=== PATIENT | male | born 1955 | race African-American/Black ===

== ENCOUNTER 2020-08-25 08:20 | Observation (INO) | payer MEDICARE ==
[2020-08-25] MEDS ORDERED: Lisinopril 20 MG TAB PO SCH ×2 (09:00→13:45)
[2020-08-25 09:17] LABS: #Basophils 0.1 10x3/uL (0.0-0.2); #Eosinphils 0.2 10x3/uL (0.0-0.5); #Monocytes 0.4 10x3/uL (0.0-1.1); #Neutrophils 4.3 10x3/uL (1.5-8.4); %Basophils 0.8 % (0.0-2.0); %Eosinophils 2.4 % (0.0-6.0); %Lymphocytes 22.9 % (18.0-47.0); %Monocytes 6.1 % (0.0-10.0); %Neutrophils 67.5 % (40.0-75.0); Hemoglobin 16.1 g/dL (13.5-17.5); Mean Corpuscular HGB CONC 33.3 g/dL (32.0-36.0); Mean Corpuscular Hemoglobin 29.8 pg (27.0-33.0); Mean Corpuscular Volume 89.5 fl (81.2-95.1); Mean Platelet Volume 12.5 fl (7.4-10.4); Platelet Count 156 10x3/uL (150-450); RBC Distribution Width 12.3 % (11.5-14.5); Red Blood Cell (RBC) Count 5.41 10x6/uL (4.32-5.72); White Blood Cell (WBC) Count 6.4 10x3/uL (3.5-10.5)
[2020-08-25 09:26] LABS: ALT (SGPT) 25 U/L (8-55); AST (SGOT) 26 U/L (5-34); Alkaline Phosphatase 85 U/L (40-110); Anion Gap 13 mmol/L (10-20); BUN (Urea Nitrogen) 19 mg/dL (8.4-25.7); Bilirubin, Total 0.5 mg/dL (0.2-1.2); Calc. Creatinine Clearance 0 mL/min (70-130); Calcium 9.5 mg/dL (7.8-10.44); Carbon Dioxide 29 mmol/L (23-31); Chloride 100 mmol/L (98-107); Globulin 3.7 g/dL (2.4-3.5); Glucose 166 mg/dL (80-115); Potassium 3.2 mmol/L (3.5-5.1); Protein, Total 7.7 g/dL (5.8-8.1); Sodium 139 mmol/L (136-145)
[2020-08-25 09:43] LABS: CKMB 3.6 ng/mL (0-6.6)
[2020-08-25] MEDS ORDERED: Nitroglycerin 2% Ointment 1 INCH/1 GM Packet ONE (09:54)
[2020-08-25] MEDS ORDERED: Furosemide 40 MG/4 ML VIAL ONE (11:09)
[2020-08-25] MEDS ORDERED: Ondansetron PF 4 MG/2 ML Vial IVP PRN (11:44)
[2020-08-25 13:33] VITALS: BMI 32.5
[2020-08-25] MEDS ORDERED: Carvedilol 25 MG TAB PO SCH ×2 (13:45→17:00)
[2020-08-25] MEDS: Carvedilol 25 MG TAB PO SCH ×2 (13:54→20:03)
[2020-08-25] MEDS ORDERED: Insulin Regular 300 UNITS/3 ML VIAL SC PRN (14:00)
[2020-08-25] MEDS ORDERED: Dextrose 5% in Water 1,000 ML IV PRN (14:00)
[2020-08-25] MEDS ORDERED: Dextrose 50% Abboject 50 ML SYRINGE IVP PRN (14:00)
[2020-08-25 15:14] LABS: CKMB 3.1 ng/mL (0-6.6)
[2020-08-25] MEDS ORDERED: Potassium Chloride 20 MEQ TAB PO SCH (15:30)
[2020-08-25] MEDS: Potassium Chloride 20 MEQ TAB PO SCH (17:46)
[2020-08-25] MEDS: hydrALAZINE 20 MG/ML VIAL SLOW IVP PRN (20:02)
[2020-08-25] MEDS: Apixaban 5 MG TAB PO SCH (20:03)
[2020-08-25 20:33] LABS: Hemoglobin A1c 6.5 % (4.0-6.0)
[2020-08-25] MEDS ORDERED: Famotidine 20 MG TAB PO SCH (21:00)
[2020-08-25] MEDS: Lorazepam 2 MG/ML VIAL SLOW IVP PRN (21:41)
[2020-08-26 05:33] LABS: #Basophils 0.1 10x3/uL (0.0-0.2); #Eosinphils 0.1 10x3/uL (0.0-0.5); #Monocytes 0.5 10x3/uL (0.0-1.1); #Neutrophils 5.5 10x3/uL (1.5-8.4); %Basophils 0.6 % (0.0-2.0); %Eosinophils 1.4 % (0.0-6.0); %Lymphocytes 24.4 % (18.0-47.0); %Monocytes 6.2 % (0.0-10.0); %Neutrophils 67.2 % (40.0-75.0); Hemoglobin 16.9 g/dL (13.5-17.5); Mean Corpuscular HGB CONC 33.7 g/dL (32.0-36.0); Mean Corpuscular Hemoglobin 29.9 pg (27.0-33.0); Mean Corpuscular Volume 88.8 fl (81.2-95.1); Mean Platelet Volume 12.5 fl (7.4-10.4); Platelet Count 171 10x3/uL (150-450); RBC Distribution Width 12.4 % (11.5-14.5); Red Blood Cell (RBC) Count 5.65 10x6/uL (4.32-5.72); White Blood Cell (WBC) Count 8.1 10x3/uL (3.5-10.5)
[2020-08-26 05:47] LABS: ALT (SGPT) 20 U/L (8-55); AST (SGOT) 19 U/L (5-34); Albumin 3.8 g/dL (3.4-4.8); Alkaline Phosphatase 79 U/L (40-110); Anion Gap 10 mmol/L (10-20); BUN (Urea Nitrogen) 17 mg/dL (8.4-25.7); Bilirubin, Total 0.5 mg/dL (0.2-1.2); Calc. Creatinine Clearance 70 mL/min (70-130); Calcium 9.5 mg/dL (7.8-10.44); Carbon Dioxide 30 mmol/L (23-31); Chloride 104 mmol/L (98-107); Globulin 3.7 g/dL (2.4-3.5); Glucose 119 mg/dL (80-115); Potassium 3.3 mmol/L (3.5-5.1); Protein, Total 7.5 g/dL (5.8-8.1); Sodium 141 mmol/L (136-145)
[2020-08-26] MEDS: Acetaminophen 325 MG TAB PO PRN ×3 (06:03→21:23)
[2020-08-26] MEDS: Potassium Chloride 20 MEQ TAB PO SCH ×2 (08:34→17:22)
[2020-08-26] MEDS: Lorazepam 2 MG/ML VIAL SLOW IVP PRN (08:35)
[2020-08-26] MEDS: Lisinopril 20 MG TAB PO SCH (08:35)
[2020-08-26] MEDS: Apixaban 5 MG TAB PO SCH ×2 (08:35→20:30)
[2020-08-26] MEDS: Carvedilol 25 MG TAB PO SCH ×2 (08:35→17:22)
[2020-08-26] MEDS: hydrALAZINE 20 MG/ML VIAL SLOW IVP PRN ×2 (10:56→15:35)
[2020-08-26] MEDS ORDERED: hydrALAZINE 25 MG TAB PO SCH (15:00)
[2020-08-26] MEDS: hydrALAZINE 25 MG TAB PO SCH ×2 (15:32→20:31)
[2020-08-26] MEDS ORDERED: Famotidine 20 MG TAB PO SCH (21:00)
[2020-08-26] MEDS ORDERED: Apixaban 5 MG TAB PO SCH (21:00)
[2020-08-27] MEDS: Apixaban 5 MG TAB PO SCH (08:58)
[2020-08-27] MEDS: Lisinopril 20 MG TAB PO SCH (08:58)
[2020-08-27] MEDS: Carvedilol 25 MG TAB PO SCH (08:59)
[2020-08-27] MEDS: Potassium Chloride 20 MEQ TAB PO SCH (08:59)
[2020-08-27] MEDS: hydrALAZINE 25 MG TAB PO SCH ×2 (08:59→14:52)
[2020-08-27] MEDS ORDERED: Aspirin Chewable 81 MG TAB PO SCH (09:00)
[2020-08-27] MEDS ORDERED: Rosuvastatin 10 MG TAB PO SCH (09:00)
[2020-08-27] MEDS ORDERED: Chlorthalidone 25 MG TAB PO SCH (12:00)
[2020-08-27 12:30] VITALS: BP 170/105; TEMP 98.6
[2020-08-27 12:39] LABS: ALT (SGPT) 18 U/L (8-55); AST (SGOT) 21 U/L (5-34); Albumin 4.1 g/dL (3.4-4.8); Alkaline Phosphatase 80 U/L (40-110); Anion Gap 11 mmol/L (10-20); BUN (Urea Nitrogen) 14 mg/dL (8.4-25.7); Bilirubin, Total 0.6 mg/dL (0.2-1.2); Calc. Creatinine Clearance 68 mL/min (70-130); Calcium 10.1 mg/dL (7.8-10.44); Carbon Dioxide 28 mmol/L (23-31); Chloride 102 mmol/L (98-107); Globulin 3.8 g/dL (2.4-3.5); Glucose 131 mg/dL (80-115); Potassium 3.2 mmol/L (3.5-5.1); Protein, Total 7.9 g/dL (5.8-8.1); Sodium 138 mmol/L (136-145)
[2020-08-27] MEDS ORDERED: Magnesium Oxide 400 MG TAB PO SCH (21:00)
[2020-08-28] MEDS ORDERED: Chlorthalidone 25 MG TAB PO SCH (09:00)
== END 2020-08-27 15:26 | disposition home or self-care (01) ==
LOC: CSHERS 08:20 → INTOOBSV 11:30 → CSHTELE 11:30
PROVIDERS: ADMIT Family Medicine; ATTEND Family Medicine
DX: I16.0 Hypertensive urgency (principal); I48.19 Other persistent atrial fibrillation; I25.10 Atherosclerotic heart disease of native coronary artery without angina pectoris; R77.8 Other specified abnormalities of plasma proteins; E11.22 Type 2 diabetes mellitus with diabetic chronic kidney disease; I13.10 Hypertensive heart and chronic kidney disease without heart failure, with stage 1 through stage 4 chronic kidney disease, or unspecified chronic kidney disease; N18.9 Chronic kidney disease, unspecified; N17.9 Acute kidney failure, unspecified; E87.6 Hypokalemia; E78.5 Hyperlipidemia, unspecified; I25.2 Old myocardial infarction; Z95.5 Presence of coronary angioplasty implant and graft; Z79.899 Other long term (current) drug therapy; Z79.82 Long term (current) use of aspirin; Z79.01 Long term (current) use of anticoagulants; Z79.84 Long term (current) use of oral hypoglycemic drugs
CPT/HCPCS: 36415; 36416; 71045; 80053; 82553; 83036; 83735; 83880; 84484; 85025; 93005; 93306; 96374; 96375; G0378; J0360; J1940; J2060

== ENCOUNTER 2021-06-05 11:08 | Emergency (ER) | payer MEDICARE, BC ==
[2021-06-05] MEDS ORDERED: HYDROcodone/Acetaminophen 10/325 mg Tablet ONE (13:32)
[2021-06-05] MEDS ORDERED: predniSONE 20 MG TAB ONE (13:32)
== END 2021-06-05 14:27 | disposition home or self-care (01) ==
LOC: CSHERS 11:08
DX: M10.9 Gout, unspecified (principal); I10 Essential (primary) hypertension; E78.5 Hyperlipidemia, unspecified; I25.2 Old myocardial infarction; I48.91 Unspecified atrial fibrillation; E11.9 Type 2 diabetes mellitus without complications; Z79.899 Other long term (current) drug therapy; Z79.82 Long term (current) use of aspirin
CPT/HCPCS: J7512

== ENCOUNTER 2021-06-12 08:24 | Emergency (ER) | payer MEDICARE, BC ==
[2021-06-12] MEDS ORDERED: Morphine 4 MG/ML VIAL ONE (11:41)
== END 2021-06-12 12:33 | disposition home or self-care (01) ==
LOC: CSHERS 08:24
DX: M10.9 Gout, unspecified (principal); I10 Essential (primary) hypertension; E78.5 Hyperlipidemia, unspecified; E11.9 Type 2 diabetes mellitus without complications; I48.91 Unspecified atrial fibrillation; Z79.82 Long term (current) use of aspirin; Z79.899 Other long term (current) drug therapy
CPT/HCPCS: 96372; 99283; J2270

== ENCOUNTER 2021-10-05 10:06 | Emergency (ER) | payer OTHER, MEDICARE ==
[2021-10-05 11:04] LABS: #Basophils 0.1 10x3/uL (0.0-0.2); #Eosinphils 0.2 10x3/uL (0.0-0.5); #Monocytes 0.5 10x3/uL (0.0-1.1); #Neutrophils 6.5 10x3/uL (1.5-8.4); %Basophils 0.6 % (0.0-2.0); %Eosinophils 2.1 % (0.0-6.0); %Lymphocytes 15.1 % (18.0-47.0); %Monocytes 5.9 % (0.0-10.0); %Neutrophils 75.8 % (40.0-75.0); Hemoglobin 14.8 g/dL (13.5-17.5); Mean Corpuscular HGB CONC 33.5 g/dL (32.0-36.0); Mean Corpuscular Hemoglobin 29.8 pg (27.0-33.0); Mean Corpuscular Volume 88.9 fl (81.2-95.1); Mean Platelet Volume 12.4 fl (7.4-10.4); Platelet Count 237 10x3/uL (150-450); RBC Distribution Width 13.2 % (11.5-14.5); Red Blood Cell (RBC) Count 4.97 10x6/uL (4.32-5.72); White Blood Cell (WBC) Count 8.6 10x3/uL (3.5-10.5)
[2021-10-05] MEDS ORDERED: HYDROcodone/Acetaminophen 10/325 mg Tablet ONE (11:37)
[2021-10-05 11:42] LABS: ALT (SGPT) 16 U/L (8-55); AST (SGOT) 15 U/L (5-34); Albumin 3.9 g/dL (3.4-4.8); Alkaline Phosphatase 114 U/L (40-110); Anion Gap 18 mmol/L (10-20); BUN (Urea Nitrogen) 12 mg/dL (8.4-25.7); Bilirubin, Total 0.6 mg/dL (0.2-1.2); Calc. Creatinine Clearance 0 mL/min (70-130); Calcium 9.9 mg/dL (7.8-10.44); Carbon Dioxide 23 mmol/L (23-31); Chloride 101 mmol/L (98-107); Globulin 2.9 g/dL (2.4-3.5); Glucose 238 mg/dL (80-115); Potassium 3.5 mmol/L (3.5-5.1); Protein, Total 6.8 g/dL (5.8-8.1); Sodium 138 mmol/L (136-145)
== END 2021-10-05 11:30 | disposition home or self-care (01) ==
LOC: CSHERS 10:06
DX: S93.402A Sprain of unspecified ligament of left ankle, initial encounter (principal); L03.116 Cellulitis of left lower limb; I10 Essential (primary) hypertension; I25.2 Old myocardial infarction; I48.91 Unspecified atrial fibrillation; E78.5 Hyperlipidemia, unspecified; M10.9 Gout, unspecified; Z79.01 Long term (current) use of anticoagulants; Z79.84 Long term (current) use of oral hypoglycemic drugs; Z79.899 Other long term (current) drug therapy; X50.1XXA Overexertion from prolonged static or awkward postures, initial encounter; Y93.01 Activity, walking, marching and hiking; Y92.480 Sidewalk as the place of occurrence of the external cause
CPT/HCPCS: 80053; 83605; 85025; 96365; J3490

== ENCOUNTER 2021-10-06 08:54 | Emergency (ER) | payer MEDICARE ==
[2021-10-06] MEDS ORDERED: Morphine 4 MG/ML VIAL ONE (10:23)
== END 2021-10-06 10:55 | disposition home or self-care (01) ==
LOC: CSHERS 08:54
DX: L03.116 Cellulitis of left lower limb (principal); S80.812A Abrasion, left lower leg, initial encounter; I25.2 Old myocardial infarction; I48.91 Unspecified atrial fibrillation; I10 Essential (primary) hypertension; E78.5 Hyperlipidemia, unspecified; E11.9 Type 2 diabetes mellitus without complications; Z79.01 Long term (current) use of anticoagulants; Z79.84 Long term (current) use of oral hypoglycemic drugs; Z79.899 Other long term (current) drug therapy; X58.XXXA Exposure to other specified factors, initial encounter
CPT/HCPCS: 96372; 99283; J2270

== ENCOUNTER 2021-10-08 12:39 | Inpatient (IN) | payer MEDICARE, OTHER ==
[2021-10-08] MEDS ORDERED: Cefepime 2 GM VIAL ONE (13:36)
[2021-10-08 14:01] LABS: #Basophils 0.1 10x3/uL (0.0-0.2); #Eosinphils 0.2 10x3/uL (0.0-0.5); #Monocytes 0.9 10x3/uL (0.0-1.1); #Neutrophils 8.2 10x3/uL (1.5-8.4); %Basophils 0.5 % (0.0-2.0); %Eosinophils 1.7 % (0.0-6.0); %Lymphocytes 12.4 % (18.0-47.0); %Neutrophils 76.8 % (40.0-75.0); Hemoglobin 14.7 g/dL (13.5-17.5); Mean Corpuscular HGB CONC 34.2 g/dL (32.0-36.0); Mean Corpuscular Hemoglobin 29.8 pg (27.0-33.0); Mean Platelet Volume 12.1 fl (7.4-10.4); Platelet Count 254 10x3/uL (150-450); RBC Distribution Width 12.9 % (11.5-14.5); Red Blood Cell (RBC) Count 4.94 10x6/uL (4.32-5.72); White Blood Cell (WBC) Count 10.7 10x3/uL (3.5-10.5)
[2021-10-08 14:07] LABS: ALT (SGPT) 17 U/L (8-55); AST (SGOT) 20 U/L (5-34); Albumin 3.8 g/dL (3.4-4.8); Alkaline Phosphatase 97 U/L (40-110); Anion Gap 14 mmol/L (10-20); BUN (Urea Nitrogen) 15 mg/dL (8.4-25.7); Bilirubin, Total 0.5 mg/dL (0.2-1.2); Calc. Creatinine Clearance 0 mL/min (70-130); Calcium 10.7 mg/dL (7.8-10.44); Carbon Dioxide 27 mmol/L (23-31); Chloride 97 mmol/L (98-107); Glucose 126 mg/dL (80-115); Potassium 3.3 mmol/L (3.5-5.1); Protein, Total 7.8 g/dL (5.8-8.1); Sodium 135 mmol/L (136-145); Uric Acid 6.6 mg/dL (3.5-7.2)
[2021-10-08] MEDS ORDERED: Dextrose 5% in Water 1,000 ML IV PRN (18:14)
[2021-10-08] MEDS ORDERED: Acetaminophen 325 MG TAB PO PRN (18:14)
[2021-10-08] MEDS ORDERED: HumaLOG 300 UNITS/3 ML VIAL SC PRN ×2 (18:14)
[2021-10-08] MEDS ORDERED: Dextrose 50% Abboject 50 ML SYRINGE SLOW IVP PRN (18:14)
[2021-10-08 18:21] VITALS: BMI 33.9
[2021-10-08] MEDS ORDERED: Potassium Chloride 20 MEQ TAB PO SCH (20:00)
[2021-10-08] MEDS ORDERED: Apixaban 5 MG TAB PO SCH (20:15)
[2021-10-08] MEDS: Sodium Chloride 0.9% 1,000 ML IV SCH (20:45)
[2021-10-08] MEDS ORDERED: Vancomycin HCl 500 MG in Sodium Chloride 0.9% 100 ML IVPB SCH (20:45)
[2021-10-08] MEDS: Cefepime 1 GM in Sodium Chloride 0.9% 100 ML IVPB SCH (20:46)
[2021-10-08] MEDS: hydrALAZINE 25 MG TAB PO SCH (20:51)
[2021-10-08] MEDS: Rosuvastatin 10 MG TAB PO SCH (20:52)
[2021-10-08] MEDS: Furosemide 40 MG TAB PO SCH (20:52)
[2021-10-08] MEDS: clonazePAM 0.5 MG TAB PO SCH (20:53)
[2021-10-08] MEDS ORDERED: Colchicine 0.6 MG TAB PO SCH (21:00)
[2021-10-09 05:24] LABS: #Basophils 0.1 10x3/uL (0.0-0.2); #Eosinphils 0.3 10x3/uL (0.0-0.5); #Monocytes 0.7 10x3/uL (0.0-1.1); %Basophils 0.7 % (0.0-2.0); %Eosinophils 3.6 % (0.0-6.0); %Lymphocytes 19.2 % (18.0-47.0); %Monocytes 8.8 % (0.0-10.0); %Neutrophils 67.3 % (40.0-75.0); Mean Corpuscular HGB CONC 33.8 g/dL (32.0-36.0); Mean Corpuscular Hemoglobin 29.9 pg (27.0-33.0); Mean Corpuscular Volume 88.4 fl (81.2-95.1); Mean Platelet Volume 12.1 fl (7.4-10.4); Platelet Count 244 10x3/uL (150-450); RBC Distribution Width 13.2 % (11.5-14.5); Red Blood Cell (RBC) Count 5.02 10x6/uL (4.32-5.72); White Blood Cell (WBC) Count 7.4 10x3/uL (3.5-10.5)
[2021-10-09] MEDS ORDERED: cloNIDine 0.1 MG TAB PO SCH (05:30)
[2021-10-09 05:35] LABS: Anion Gap 16 mmol/L (10-20); BUN (Urea Nitrogen) 13 mg/dL (8.4-25.7); Calc. Creatinine Clearance 77 mL/min (70-130); Carbon Dioxide 26 mmol/L (23-31); Chloride 103 mmol/L (98-107); Glucose 108 mg/dL (80-115); Potassium 3.1 mmol/L (3.5-5.1); Sodium 142 mmol/L (136-145)
[2021-10-09] MEDS ORDERED: hydrALAZINE 20 MG/ML VIAL SLOW IVP PRN (05:49)
[2021-10-09] MEDS: Apixaban 5 MG TAB PO SCH ×2 (06:28→18:49)
[2021-10-09] MEDS: Carvedilol 25 MG TAB PO SCH ×2 (06:28→18:49)
[2021-10-09] MEDS: Aspirin Chewable 81 MG TAB PO SCH (06:28)
[2021-10-09] MEDS ORDERED: Potassium Chloride 20 MEQ TAB PO SCH (07:45)
[2021-10-09] MEDS: hydrALAZINE 25 MG TAB PO SCH ×3 (08:39→21:00)
[2021-10-09] MEDS: Magnesium Oxide 400 MG TAB PO SCH (08:39)
[2021-10-09] MEDS: Potassium Chloride 20 MEQ TAB PO SCH ×2 (08:40→21:01)
[2021-10-09] MEDS: clonazePAM 0.5 MG TAB PO SCH ×3 (08:41→21:00)
[2021-10-09] MEDS: Furosemide 40 MG TAB PO SCH ×2 (08:41→21:00)
[2021-10-09] MEDS: Cefepime 1 GM in Sodium Chloride 0.9% 100 ML IVPB SCH (08:42)
[2021-10-09] MEDS: Allopurinol 300 MG TAB PO SCH (08:42)
[2021-10-09] MEDS: Sodium Chloride 0.9% 1,000 ML IV SCH (08:44)
[2021-10-09] MEDS ORDERED: cloNIDine 0.2 MG TAB PO PRN (13:19)
[2021-10-09] MEDS ORDERED: Glimepiride 2 MG TAB PO SCH (14:00)
[2021-10-09] MEDS: Vancomycin 1.5 GRAM/300 ML BAG 1.5 GM in Premix Bag 1 BAG IVPB SCH (16:37)
[2021-10-09] MEDS: cloNIDine 0.1 MG TAB PO PRN (17:32)
[2021-10-09 20:26] LABS: SARS-CoV-2 PCR by NAA Not Detected (NotDetected)
[2021-10-09] MEDS: Rosuvastatin 10 MG TAB PO SCH (21:01)
[2021-10-09] MEDS: Cefepime 2 GM in Sodium Chloride 0.9% 100 ML IVPB SCH (21:01)
[2021-10-09] MEDS: Colchicine 0.6 MG TAB PO SCH (21:05)
[2021-10-10] MEDS: cloNIDine 0.1 MG TAB PO PRN ×2 (01:56→11:40)
[2021-10-10 04:17] LABS: #Basophils 0.1 10x3/uL (0.0-0.2); #Eosinphils 0.3 10x3/uL (0.0-0.5); #Monocytes 0.8 10x3/uL (0.0-1.1); #Neutrophils 5.1 10x3/uL (1.5-8.4); %Basophils 0.9 % (0.0-2.0); %Eosinophils 3.7 % (0.0-6.0); %Lymphocytes 18.8 % (18.0-47.0); %Monocytes 10.1 % (0.0-10.0); %Neutrophils 66.1 % (40.0-75.0); Hemoglobin 13.9 g/dL (13.5-17.5); Mean Corpuscular HGB CONC 33.3 g/dL (32.0-36.0); Mean Corpuscular Hemoglobin 29.5 pg (27.0-33.0); Mean Corpuscular Volume 88.5 fl (81.2-95.1); Platelet Count 264 10x3/uL (150-450); RBC Distribution Width 13.2 % (11.5-14.5); Red Blood Cell (RBC) Count 4.71 10x6/uL (4.32-5.72); White Blood Cell (WBC) Count 7.8 10x3/uL (3.5-10.5)
[2021-10-10 05:11] LABS: Anion Gap 14 mmol/L (10-20); BUN (Urea Nitrogen) 13 mg/dL (8.4-25.7); Calc. Creatinine Clearance 77 mL/min (70-130); Calcium 9.8 mg/dL (7.8-10.44); Carbon Dioxide 27 mmol/L (23-31); Chloride 103 mmol/L (98-107); Glucose 115 mg/dL (80-115); Potassium 3.3 mmol/L (3.5-5.1); Sodium 141 mmol/L (136-145)
[2021-10-10] MEDS: Carvedilol 25 MG TAB PO SCH ×2 (06:29→20:02)
[2021-10-10] MEDS: Aspirin Chewable 81 MG TAB PO SCH (06:29)
[2021-10-10] MEDS: Apixaban 5 MG TAB PO SCH ×2 (06:29→20:02)
[2021-10-10] MEDS: Magnesium Oxide 400 MG TAB PO SCH (08:59)
[2021-10-10] MEDS: Potassium Chloride 20 MEQ TAB PO SCH ×2 (08:59→20:18)
[2021-10-10] MEDS: hydrALAZINE 25 MG TAB PO SCH ×3 (08:59→20:17)
[2021-10-10] MEDS: Allopurinol 300 MG TAB PO SCH (09:00)
[2021-10-10] MEDS: Furosemide 40 MG TAB PO SCH ×2 (09:00→20:18)
[2021-10-10] MEDS: clonazePAM 0.5 MG TAB PO SCH ×3 (09:00→20:18)
[2021-10-10] MEDS: Cefepime 2 GM in Sodium Chloride 0.9% 100 ML IVPB SCH (09:00)
[2021-10-10] MEDS: Glimepiride 2 MG TAB PO SCH (09:09)
[2021-10-10] MEDS: Colchicine 0.6 MG TAB PO SCH ×2 (10:00→20:19)
[2021-10-10 16:02] LABS: Vancomycin, Trough 10.2 ug/mL
[2021-10-10] MEDS: Vancomycin 1.5 GRAM/300 ML BAG 1.5 GM in Premix Bag 1 BAG IVPB SCH (19:36)
[2021-10-10] MEDS: Rosuvastatin 10 MG TAB PO SCH (20:18)
[2021-10-10] MEDS: Amoxicillin/Potassium Clav 875 MG TAB PO SCH (20:18)
[2021-10-10] MEDS: cloNIDine 0.1 MG TAB PO SCH (20:18)
[2021-10-10] MEDS ORDERED: hydrALAZINE 25 MG TAB PO SCH (21:00)
[2021-10-11 04:49] LABS: #Basophils 0.1 10x3/uL (0.0-0.2); #Eosinphils 0.3 10x3/uL (0.0-0.5); #Monocytes 0.6 10x3/uL (0.0-1.1); #Neutrophils 3.7 10x3/uL (1.5-8.4); %Basophils 1.2 % (0.0-2.0); %Eosinophils 3.9 % (0.0-6.0); %Monocytes 9.5 % (0.0-10.0); %Neutrophils 57.9 % (40.0-75.0); Hemoglobin 14.1 g/dL (13.5-17.5); Mean Corpuscular HGB CONC 33.5 g/dL (32.0-36.0); Mean Corpuscular Hemoglobin 29.7 pg (27.0-33.0); Mean Corpuscular Volume 88.6 fl (81.2-95.1); Mean Platelet Volume 11.7 fl (7.4-10.4); Platelet Count 259 10x3/uL (150-450); RBC Distribution Width 12.9 % (11.5-14.5); Red Blood Cell (RBC) Count 4.75 10x6/uL (4.32-5.72); White Blood Cell (WBC) Count 6.4 10x3/uL (3.5-10.5)
[2021-10-11 04:53] LABS: Anion Gap 14 mmol/L (10-20); BUN (Urea Nitrogen) 14 mg/dL (8.4-25.7); Calc. Creatinine Clearance 75 mL/min (70-130); Calcium 10.1 mg/dL (7.8-10.44); Carbon Dioxide 29 mmol/L (23-31); Chloride 102 mmol/L (98-107); Glucose 114 mg/dL (80-115); Potassium 3.4 mmol/L (3.5-5.1); Sodium 142 mmol/L (136-145)
[2021-10-11] MEDS: Carvedilol 25 MG TAB PO SCH (06:42)
[2021-10-11] MEDS: Apixaban 5 MG TAB PO SCH (06:42)
[2021-10-11] MEDS: Aspirin Chewable 81 MG TAB PO SCH (06:42)
[2021-10-11 07:54] VITALS: BP 154/107; TEMP 98.4
[2021-10-11] MEDS: cloNIDine 0.1 MG TAB PO SCH (09:42)
[2021-10-11] MEDS: Glimepiride 2 MG TAB PO SCH (09:43)
[2021-10-11] MEDS: Amoxicillin/Potassium Clav 875 MG TAB PO SCH (09:44)
[2021-10-11] MEDS: Magnesium Oxide 400 MG TAB PO SCH (09:45)
[2021-10-11] MEDS: Potassium Chloride 20 MEQ TAB PO SCH (09:46)
[2021-10-11] MEDS: Furosemide 40 MG TAB PO SCH (09:46)
[2021-10-11] MEDS: Allopurinol 300 MG TAB PO SCH (09:47)
[2021-10-11] MEDS: Colchicine 0.6 MG TAB PO SCH ×2 (09:47→09:49)
[2021-10-11] MEDS: clonazePAM 0.5 MG TAB PO SCH (09:47)
[2021-10-11] MEDS: hydrALAZINE 25 MG TAB PO SCH (09:49)
== END 2021-10-11 11:00 | disposition home or self-care (01) | DRG 638 ==
LOC: EEVIPCON 12:39 → CSHERS 12:39 → CSHTELE 16:42
PROVIDERS: ADMIT Internal Medicine; ATTEND Student in an Organized Health Care Education/Training Program
DX: E11.628 Type 2 diabetes mellitus with other skin complications (principal); L03.116 Cellulitis of left lower limb; N17.9 Acute kidney failure, unspecified; E78.5 Hyperlipidemia, unspecified; M10.9 Gout, unspecified; E87.6 Hypokalemia; I48.91 Unspecified atrial fibrillation; I12.9 Hypertensive chronic kidney disease with stage 1 through stage 4 chronic kidney disease, or unspecified chronic kidney disease; N18.9 Chronic kidney disease, unspecified; E11.22 Type 2 diabetes mellitus with diabetic chronic kidney disease; Z20.822 Contact with and (suspected) exposure to COVID-19; Z79.01 Long term (current) use of anticoagulants; I25.2 Old myocardial infarction; Z95.5 Presence of coronary angioplasty implant and graft; Z79.899 Other long term (current) drug therapy; Z79.82 Long term (current) use of aspirin; Z79.84 Long term (current) use of oral hypoglycemic drugs; Z79.891 Long term (current) use of opiate analgesic
CPT/HCPCS: 36415; 36416; 80048; 80053; 80202; 84550; 85025; 87040; 96365; 96367; J0360; J0692; J1815; J3370; J3490; J7050; U0003; U0005

== ENCOUNTER 2025-01-27 00:48 | Emergency (ER) | payer OTHER | END 2025-01-27 01:33 | disposition home or self-care (01) | LOC: CSHERS 00:48 | DX: I10 Essential (primary) hypertension (principal); E11.9 Type 2 diabetes mellitus without complications; I25.2 Old myocardial infarction; I48.91 Unspecified atrial fibrillation; E78.5 Hyperlipidemia, unspecified; Z79.82 Long term (current) use of aspirin; Z79.899 Other long term (current) drug therapy; Z79.84 Long term (current) use of oral hypoglycemic drugs; Z79.01 Long term (current) use of anticoagulants | CPT/HCPCS: 93005; 99283 ==

== ENCOUNTER 2025-02-15 18:35 | Emergency (ER) | payer OTHER | END 2025-02-15 21:47 | disposition home or self-care (01) | LOC: CSHERS 18:35 | DX: S80.02XA Contusion of left knee, initial encounter (principal); L03.116 Cellulitis of left lower limb; I10 Essential (primary) hypertension; I25.2 Old myocardial infarction; I48.91 Unspecified atrial fibrillation; E11.9 Type 2 diabetes mellitus without complications; Z95.9 Presence of cardiac and vascular implant and graft, unspecified; W01.0XXA Fall on same level from slipping, tripping and stumbling without subsequent striking against object, initial encounter | CPT/HCPCS: 99283 ==